=== PATIENT | female | born 1950 | race Caucasian/White ===

== ENCOUNTER 2017-03-01 08:50 | Day surgery (SDC) | payer MEDICARE, BC ==
[2017-03-01 11:07] VITALS: RESP 20; TEMP 97.2; O2SAT 99
[2017-03-01 11:12] VITALS: BP 122/86; PULSE 71
== END 2017-03-01 11:15 | disposition home or self-care (01) | DRG 951 ==
LOC: SURG 08:50
PROVIDERS: ATTEND Surgery
DX: Z12.11 Encounter for screening for malignant neoplasm of colon (principal); Z86.010 Personal history of colon polyps
CPT/HCPCS: J2001; J2704